=== PATIENT | female | born 1935 | race Caucasian/White ===

== ENCOUNTER 2017-05-21 09:37 | Emergency (ER) | payer MEDICARE ==
[~2017-05-21] VITALS: Ht 165.1 cm; Wt 100.0 kg
[~2017-05-21 09:37] MED LIST: ACETAMIN500 M1 PO; ALLEGRA ALLERG180 MG PO; ANTI-DIARRHEAL2 MG PO; ASACOL400 MG PO; AVELOX400 MG PO; BENADRYL 25MG C25 MG PO; BENADRYL25 MG PO; BENAZEPRIL10 M1 PO; BENAZEPRIL10 MG PO; CEPH500C57 OR; COQ-1030 MG PO; CRESTOR20 MG PO; D3400 UNIT OR; DIPROLENE 0.05% EX; DIPROLENE AF0.05 % EX; DIPROLENE AF0.05 % TOP; DUONEB IN; FISH OIL1000 MG PO; FLAGYL500 MG PO; FUROSEMIDE40 MG PO; GLYBURIDE5 M1 PO; GLYBURIDE5 MG PO; HUMALOG100 MG/ML SC; HYDROCHLOROT50 MG OR; KLOR-CON 1010 MEQ PO; KLOR-CON M1010 MEQ OR; LANTUS SC; LANTUS100 MG/ML SC; LASIX40 MG PO; LEVEMIR FL100 UNIT/M SC; LOPRESSOR 550 MG/TAB PO; LOPRESSOR25 M1 PO; LOPRESSOR50 M1 PO; LOTREL1 CA1 OR; LOTREL1 CA4 PO; LYRICA50 MG PO; MECLIZINE25 M1 PO; MECLIZINE25 MG OR; MECLIZINE25 MG PO; METOCLOPRAM5 MG OR; METOPROL TAR25 MG PO; METOPROL TAR50 MG PO; MIACALCIN200 MG/ACT; MICRO-K10 ME1 PO; MICRONASE5 MG OR; MICRONASE5 MG PO; MULTI VIT PO; NOVOLOG100 IU/1 M SC; OMEPRAZOLE20 MG OR; OMEPRAZOLE40 MG PO; PANTOPRAZOLE SO40 MG PO; PLAVIX75 MG PO; POT CHLORIDE10 ME1 PO; PRAVACHOL80 MG OR; PRAVASTATIN80 MG PO; SLOW-MAG64 MG OR; SODIUM HYPOCHLORITE 0.125% EX; STRESS FORMULA OR; STRESSTAB2 PO; SYNTHROID100 MCG OR; SYNTHROID100 MCG PO; TRAMADOL HYDROC50 MG PO; TUMS ULTRA1000 MG OR; TYLENOL # 31 TA1 PO; TYLENOL 500MG TAB PO; TYLENOL ARTHRITIS PO; TYLENOL500 MG OR; VAGIFEM25 MCG VA; VICODIN1 TAB PO; VITAMIN B 6100 MG PO; VITAMIN B-650 MG OR; VITAMIN D1000 UNIT PO; VITAMIN D400 UNI1 OR; VITAMIN D400 UNI2 PO
[2017-05-21] MEDS ORDERED: MIACALCIN200 UNIT/A (10:58)
[2017-05-21] MEDS ORDERED: GABAPENTIN400 M2 PO (10:59)
[2017-05-21] MEDS ORDERED: LORTAB 5-325 MG1 TAB PO (11:14)
[2017-05-21] MEDS ORDERED: EC-NAPROSYN500 MG PO (11:14)
[2017-05-21 11:41] VITALS: BP 205/82
== END 2017-05-21 11:55 | disposition home or self-care (01) ==
LOC: ED 09:37
DX: S80.01XA Contusion of right knee, initial encounter (principal); M25.461 Effusion, right knee; W18.39XA Other fall on same level, initial encounter; Y92.002 Bathroom of unspecified non-institutional (private) residence as the place of occurrence of the external cause; E10.9 Type 1 diabetes mellitus without complications; Z79.4 Long term (current) use of insulin; R53.1 Weakness

== ENCOUNTER → 2017-11-21 | Day surgery (SDC) | payer MEDICARE ==
[~2017-11-21] VITALS: Ht 165.1 cm; Wt 99.8 kg
[~2017-11-21] MED LIST changes: +ANTI-DIARRHEAL2 M1 PO; +EC-NAPROSYN500 MG PO; +GABAPENTIN400 M2 PO; +HUMALOG100 UNIT/M SC; +LORTAB 5-325 MG1 TAB PO; +MIACALCIN200 UNIT/A; +SIMVASTATIN40 MG PO; +TYLENOL 8 HOUR650 MG
[2017-11-21 09:50] VITALS: BP 156/69
== END ==
LOC: ORM 07:37
PROVIDERS: ATTEND Anesthesiology Pain Medicine
PROC: 3E0T33Z Introduction of Anti-inflammatory into Peripheral Nerves and Plexi, Percutaneous Approach (ICD-10-PCS; principal; 2017-11-21)
PROC: 3E0T3BZ Introduction of Anesthetic Agent into Peripheral Nerves and Plexi, Percutaneous Approach (ICD-10-PCS; 2017-11-21)
PROC: 3E0T33Z Introduction of Anti-inflammatory into Peripheral Nerves and Plexi, Percutaneous Approach (ICD-10-PCS; 2017-11-21)
PROC: 3E0T3BZ Introduction of Anesthetic Agent into Peripheral Nerves and Plexi, Percutaneous Approach (ICD-10-PCS; 2017-11-21)
DX: M54.5 Low back pain (principal); M47.816 Spondylosis without myelopathy or radiculopathy, lumbar region

== ENCOUNTER 2017-12-05 05:49 | Day surgery (SDC) | payer MEDICARE ==
[~2017-12-05] VITALS: Ht 165.1 cm; Wt 99.8 kg
[2017-12-05 09:56] VITALS: BP 141/80
== END 2017-12-05 09:51 | disposition home or self-care (01) ==
LOC: ORM 05:49
PROVIDERS: ATTEND Anesthesiology Pain Medicine
PROC: 3E0U33Z Introduction of Anti-inflammatory into Joints, Percutaneous Approach (ICD-10-PCS; principal; 2017-12-05)
PROC: 3E0U3BZ Introduction of Anesthetic Agent into Joints, Percutaneous Approach (ICD-10-PCS; 2017-12-05)
DX: M54.5 Low back pain (principal); M51.36 Other intervertebral disc degeneration, lumbar region; M12.9 Arthropathy, unspecified; M41.26 Other idiopathic scoliosis, lumbar region; M16.11 Unilateral primary osteoarthritis, right hip; M71.551 Other bursitis, not elsewhere classified, right hip

== ENCOUNTER 2017-12-19 06:53 | Day surgery (SDC) | payer MEDICARE ==
[2017-12-19 13:11] VITALS: BP 187/75
[2018-01-01] MEDS ORDERED: TRAMADOL HCL50 MG PO (11:19)
== END 2017-12-19 10:30 | disposition home or self-care (01) ==
LOC: ORM 06:53
PROVIDERS: ATTEND Anesthesiology Pain Medicine
PROC: 3E0T3BZ Introduction of Anesthetic Agent into Peripheral Nerves and Plexi, Percutaneous Approach (ICD-10-PCS; principal; 2017-12-19)
PROC: 3E0T33Z Introduction of Anti-inflammatory into Peripheral Nerves and Plexi, Percutaneous Approach (ICD-10-PCS; 2017-12-19)
DX: M76.21 Iliac crest spur, right hip (principal); M76.22 Iliac crest spur, left hip

== ENCOUNTER → 2018-08-07 | Outpatient (REF) | payer MEDICARE ==
[~2018-08-07] MED LIST changes: +TRAMADOL HCL50 MG PO
[2018-08-07 11:14] LABS: HEMATOCRIT 37.5 % (37.0-47.0); HEMOGLOBIN 11.8 g/dl (12.0-16.0); IMMATURE GRANULOCYTES 0.2 % (0.0-5.0); MEAN CELL VOLUME 92.4 fL CALC (80.0-100.0); MEAN CORPUSCULAR HGB 29.1 pG CALC (26.0-32.0); MEAN CORPUSCULAR HGB CONC 31.5 g/L CALC (32.0-36.0); NEUT# 3.05 thou/uL (2.00-7.15); RED BLOOD COUNT 4.06 mill/uL (4.20-5.60); RED CELL DISTRI WIDTH 14.6 % (11.5-15.5)
[2018-08-07 11:40] LABS: ALBUMIN 3.7 g/dL (3.2-5.0); BILIRUBIN, TOTAL 0.4 mg/dL (0.0-1.4); CREATININE 1.2 mg/dL (0.5-1.0); POTASSIUM 4.5 mmol/l (3.5-5.1); TOTAL PROTEIN 6.9 g/dL (6.3-8.2)
[2018-08-07 12:10] LABS: TSH, 3RD GENERATION 1.17 uIU/mL (0.47 - 4.68)
== END | disposition home or self-care (01) ==
LOC: LAB 10:49
PROVIDERS: ATTEND Nurse Practitioner Adult Health
DX: E11.42 Type 2 diabetes mellitus with diabetic polyneuropathy (principal); E78.49 Other hyperlipidemia; N18.9 Chronic kidney disease, unspecified

== ENCOUNTER 2021-09-03 12:02 | Emergency (ER) | payer MEDICARE ==
[~2021-09-03] VITALS: Ht 160 cm; Wt 90.0 kg
[2021-09-03 12:53] LABS: HEMOGLOBIN 11.6 g/dl (12.0-16.0); IMMATURE GRANULOCYTES 0.1 % (0.0-5.0); MEAN CELL VOLUME 93.4 fL CALC (80.0-100.0); MEAN CORPUSCULAR HGB 28.5 pG CALC (26.0-32.0); MEAN CORPUSCULAR HGB CONC 30.5 g/dL CAL (32.0-36.0); NEUT# 5.11 thou/uL (2.00-7.15); RED BLOOD COUNT 4.07 mill/uL (4.20-5.60); RED CELL DISTRI WIDTH 14.8 % (11.5-15.5)
[2021-09-03 13:04] LABS: ALBUMIN 4.5 g/dL (3.2-5.0); CREATININE 1.4 mg/dL (0.5-1.0)
[2021-09-03 13:14] LABS: BILIRUBIN, TOTAL 1.4 mg/dL (0.0-1.4); POTASSIUM 5.6 mmol/l (3.5-5.1); TOTAL PROTEIN 8.7 g/dL (6.3-8.2)
[2021-09-03 13:20] LABS: URINE BILIRUBIN - DIPSTICK NEGATIVE (NEGATIVE); URINE BLOOD DIPSTICK NEGATIVE (NEGATIVE); URINE COLOR YELLOW; URINE GLUCOSE - DIPSTICK NEGATIVE (NEGATIVE); URINE KETONE NEGATIVE (NEGATIVE); URINE LEUK ESTERASE NEGATIVE (NEGATIVE); URINE PH 5.5 (4.5-8.0); URINE PROTEIN - DIPSTICK NEGATIVE (NEG-TRACE); URINE UROBILINOGEN - DIPSTICK 0.2 E.U./dL (0.2)
[2021-09-03 13:21] LABS: URINE NITRITE - DIPSTICK NEGATIVE (Negative)
[2021-09-03 15:45] VITALS: BP 166/57
== END 2021-09-03 16:36 | disposition home or self-care (01) ==
LOC: ED 12:02
PROVIDERS: Family Medicine
DX: E11.649 Type 2 diabetes mellitus with hypoglycemia without coma (principal); I10 Essential (primary) hypertension; I25.2 Old myocardial infarction; Z79.4 Long term (current) use of insulin

== ENCOUNTER 2022-09-05 20:49 | Emergency (ER) | payer MEDICARE ==
[~2022-09-05] VITALS: Ht 160 cm; Wt 122.7 kg
[2022-09-05] VITALS (10 sets, daily range): BP systolic 123–153; BP diastolic 36–56
[2022-09-05 21:37] LABS: HEMATOCRIT 39.8 % (37.0-47.0); IMMATURE GRANULOCYTES 0.2 % (0.0-5.0); MEAN CELL VOLUME 91.1 fL CALC (80.0-100.0); MEAN CORPUSCULAR HGB 27.5 pG CALC (26.0-32.0); MEAN CORPUSCULAR HGB CONC 30.2 g/dL CAL (32.0-36.0); NEUT# 10.02 thou/uL (2.00-7.15); RED BLOOD COUNT 4.37 mill/uL (4.20-5.60); RED CELL DISTRI WIDTH 16.1 % (11.5-15.5)
[2022-09-05 21:44] LABS: ACT PARTIAL THROMBO TIME 23.1 SECONDS (20.0-32.5); ALBUMIN 4.2 g/dL (3.2-5.0); BILIRUBIN, TOTAL 0.4 mg/dL (0.0-1.4); CREATININE 1.6 mg/dL (0.5-1.0); INTERNATIONAL NORMALIZED RATIO 1.1 RATIO (0.7-1.3); TOTAL PROTEIN 7.5 g/dL (6.3-8.2)
[2022-09-05 21:46] LABS: POTASSIUM 4.1 mmol/l (3.5-5.1)
[2022-09-05 23:24] LABS: URINE BLOOD DIPSTICK NEGATIVE (NEGATIVE); URINE COLOR YELLOW; URINE GLUCOSE - DIPSTICK NEGATIVE (NEGATIVE); URINE KETONE TRACE mg/dL (NEGATIVE); URINE LEUK ESTERASE TRACE (NEGATIVE); URINE PROTEIN - DIPSTICK 30 mg/dL (NEG-TRACE); URINE SPECIFIC GRAVITY 1.025; URINE UROBILINOGEN - DIPSTICK 0.2 E.U./dL (0.2)
[2022-09-05 23:25] LABS: URINE BILIRUBIN - DIPSTICK SMALL (NEGATIVE)
[2022-09-05 23:26] LABS: URINE NITRITE - DIPSTICK NEGATIVE (Negative)
[2022-09-05 23:32] LABS: URINE BACTERIA MODERATE hpf; URINE CALCIUM OXALATE CRYSTALS FEW lpf; URINE MUCUS FEW hpf (NONE-FEW); URINE SQUAMOUS EPITHELIAL CELL FEW EPI/hpf (0-FEW)
[2022-09-06] VITALS (11 sets, daily range): BP systolic 110–136; BP diastolic 48–65
== END 2022-09-06 03:18 ==
LOC: ED 20:49 → ED-I 23:12 → ED 09-06 03:18
PROVIDERS: Emergency Medicine
PROC: 0T9B70Z Drainage of Bladder with Drainage Device, Via Natural or Artificial Opening (ICD-10-PCS; principal; 2022-09-05)
DX: K50.111 Crohn's disease of large intestine with rectal bleeding (principal); I10 Essential (primary) hypertension; E11.9 Type 2 diabetes mellitus without complications; I25.2 Old myocardial infarction; Z79.4 Long term (current) use of insulin
CPT/HCPCS: J0131; S0164

== ENCOUNTER 2023-01-17 13:58 | Inpatient (IN) | payer MEDICARE ==
[~2023-01-17] VITALS: Ht 160 cm; Wt 93.0 kg
[2023-01-17 15:08] LABS: BASO% 1.1 % (0-3); EOS% 3.7 % (0-8); HEMOGLOBIN 10.3 g/dl (12.0-16.0); IMMATURE GRANULOCYTES 0.2 % (0.0-5.0); LYMPH% 17.8 % (15-41); MEAN CELL VOLUME 94.6 fL CALC (80.0-100.0); MEAN CORPUSCULAR HGB 27.8 pG CALC (26.0-32.0); MEAN CORPUSCULAR HGB CONC 29.4 g/dL CAL (32.0-36.0); NEUT# 4.44 thou/uL (2.00-7.15); NEUT% 69.2 % (42-76); RED BLOOD COUNT 3.7 mill/uL (4.20-5.60); RED CELL DISTRI WIDTH 15.6 % (11.5-15.5)
[2023-01-17 15:21] LABS: ALBUMIN 3.7 g/dL (3.2-5.0); ALKALINE PHOSPHATASE 86 u/l (38-126); ANION GAP 12 (6-22 (CALC)); BILIRUBIN, TOTAL 0.3 mg/dL (0.02-1.3); BUN 24 mg/dL (8-23); BUN/CREATININE RATIO 24 (12-20 (CALC)); CARBON DIOXIDE 24 mmol/l (22-30); CHLORIDE 112 mmol/l (95-108); GFR FOR AFR.AMER. > 60 ML/MIN (>=60 (CALC)); GFR OTHER RACES 52 ML/MIN (>=60 (CALC)); POTASSIUM 4.9 mmol/l (3.5-5.1); SGOT/AST 18 u/l (9-36); SODIUM 142 mmol/l (137-146)
[2023-01-17 16:34] LABS: URINE BILIRUBIN - DIPSTICK NEGATIVE (NEGATIVE); URINE BLOOD DIPSTICK NEGATIVE (NEGATIVE); URINE COLOR YELLOW; URINE GLUCOSE - DIPSTICK NEGATIVE (NEGATIVE); URINE KETONE NEGATIVE (NEGATIVE); URINE LEUK ESTERASE NEGATIVE (NEGATIVE); URINE PROTEIN - DIPSTICK NEGATIVE (NEG-TRACE); URINE UROBILINOGEN - DIPSTICK 0.2 E.U./dL (0.2)
[2023-01-17 16:41] LABS: URINE NITRITE - DIPSTICK NEGATIVE (Negative)
[2023-01-17 18:33] VITALS: BP 169/76
[2023-01-17 23:17] VITALS: BP 151/61
[2023-01-17 23:21] VITALS: BP 108/49
[2023-01-18] VITALS (8 sets, daily range): BP systolic 157–179; BP diastolic 63–76
[2023-01-18 06:31] LABS: BASO% 0.4 % (0-3); HEMATOCRIT 36.4 % (37.0-47.0); HEMOGLOBIN 10.9 g/dl (12.0-16.0); IMMATURE GRANULOCYTES 0.4 % (0.0-5.0); LYMPH% 17.4 % (15-41); MEAN CELL VOLUME 93.1 fL CALC (80.0-100.0); MEAN CORPUSCULAR HGB 27.9 pG CALC (26.0-32.0); MEAN CORPUSCULAR HGB CONC 29.9 g/dL CAL (32.0-36.0); MONO% 1.2 % (2-13); NEUT# 4.04 thou/uL (2.00-7.15); NEUT% 80.6 % (42-76); RED BLOOD COUNT 3.91 mill/uL (4.20-5.60); RED CELL DISTRI WIDTH 15.6 % (11.5-15.5)
[2023-01-18 06:36] LABS: ALKALINE PHOSPHATASE 99 u/l (38-126); ANION GAP 12 (6-22 (CALC)); BILIRUBIN, TOTAL 0.3 mg/dL (0.02-1.3); BUN 26 mg/dL (8-23); BUN/CREATININE RATIO 28 (12-20 (CALC)); CARBON DIOXIDE 27 mmol/l (22-30); CHLORIDE 109 mmol/l (95-108); CREATININE 0.9 mg/dL (0.5-1.0); GFR FOR AFR.AMER. > 60 ML/MIN (>=60 (CALC)); GFR OTHER RACES 59 ML/MIN (>=60 (CALC)); MAGNESIUM 2.1 mg/dL (1.6-2.3); POTASSIUM 4.9 mmol/l (3.5-5.1); SGOT/AST 22 u/l (9-36); SODIUM 143 mmol/l (137-146); TOTAL PROTEIN 7.8 g/dL (6.3-8.2)
[2023-01-18] MEDS ORDERED: TRESIBA100 UNIT/M SC (09:02)
[2023-01-18] MEDS ORDERED: BUMETANIDE1 MG PO (09:10)
[2023-01-18] MEDS ORDERED: NORVASC5 M1 PO (09:11)
[2023-01-18] MEDS ORDERED: CYANOCOBAL1000 MCG/M (09:14)
[2023-01-18] MEDS ORDERED: PRAVASTATIN40 MG PO (09:15)
[2023-01-18] MEDS ORDERED: TRIAMCINOLON0.51 EX (09:16)
[2023-01-19] VITALS (9 sets, daily range): BP systolic 153–186; BP diastolic 54–77
[2023-01-19 05:38] LABS: BASO% 0.8 % (0-3); EOS% 0.9 % (0-8); HEMATOCRIT 37.9 % (37.0-47.0); HEMOGLOBIN 11.2 g/dl (12.0-16.0); IMMATURE GRANULOCYTES 0.2 % (0.0-5.0); LYMPH% 20.9 % (15-41); MEAN CELL VOLUME 95.2 fL CALC (80.0-100.0); MEAN CORPUSCULAR HGB 28.1 pG CALC (26.0-32.0); MEAN CORPUSCULAR HGB CONC 29.6 g/dL CAL (32.0-36.0); NEUT# 7.31 thou/uL (2.00-7.15); NEUT% 70.2 % (42-76); RED BLOOD COUNT 3.98 mill/uL (4.20-5.60); RED CELL DISTRI WIDTH 15.9 % (11.5-15.5)
[2023-01-19 05:59] LABS: ALKALINE PHOSPHATASE 79 u/l (38-126); BUN 37 mg/dL (8-23); BUN/CREATININE RATIO 37 (12-20 (CALC)); CARBON DIOXIDE 23 mmol/l (22-30); CHLORIDE 107 mmol/l (95-108); GFR FOR AFR.AMER. > 60 ML/MIN (>=60 (CALC)); GFR OTHER RACES 52 ML/MIN (>=60 (CALC)); SGOT/AST 28 u/l (9-36); SODIUM 143 mmol/l (137-146); TOTAL PROTEIN 7.6 g/dL (6.3-8.2)
[2023-01-19 06:01] LABS: ANION GAP 18 (6-22 (CALC)); BILIRUBIN, TOTAL 0.6 mg/dL (0.02-1.3); POTASSIUM 5.2 mmol/l (3.5-5.1)
[2023-01-20] VITALS (9 sets, daily range): BP systolic 142–198; BP diastolic 53–79
[2023-01-20 06:56] LABS: BASO% 0.8 % (0-3); HEMATOCRIT 34.4 % (37.0-47.0); HEMOGLOBIN 10.3 g/dl (12.0-16.0); IMMATURE GRANULOCYTES 0.1 % (0.0-5.0); LYMPH% 20.2 % (15-41); MEAN CELL VOLUME 92.7 fL CALC (80.0-100.0); MEAN CORPUSCULAR HGB 27.8 pG CALC (26.0-32.0); MEAN CORPUSCULAR HGB CONC 29.9 g/dL CAL (32.0-36.0); MONO% 10.4 % (2-13); NEUT# 4.86 thou/uL (2.00-7.15); NEUT% 65.5 % (42-76); RED BLOOD COUNT 3.71 mill/uL (4.20-5.60); RED CELL DISTRI WIDTH 15.4 % (11.5-15.5)
[2023-01-20 07:08] LABS: ALBUMIN 3.8 g/dL (3.2-5.0); ALKALINE PHOSPHATASE 89 u/l (38-126); ANION GAP 10 (6-22 (CALC)); BILIRUBIN, TOTAL 0.4 mg/dL (0.02-1.3); BUN 34 mg/dL (8-23); BUN/CREATININE RATIO 38 (12-20 (CALC)); CARBON DIOXIDE 33 mmol/l (22-30); CHLORIDE 102 mmol/l (95-108); CREATININE 0.9 mg/dL (0.5-1.0); GFR FOR AFR.AMER. > 60 ML/MIN (>=60 (CALC)); GFR OTHER RACES 59 ML/MIN (>=60 (CALC)); POTASSIUM 4.1 mmol/l (3.5-5.1); SGOT/AST 19 u/l (9-36); SODIUM 141 mmol/l (137-146)
[2023-01-21 04:00] VITALS: BP 148/57
[2023-01-21 04:40] VITALS: BP 148/57
[2023-01-21 06:41] VITALS: BP 146/60
[2023-01-21 11:07] VITALS: BP 142/60
[2023-01-21 19:19] VITALS: BP 146/53
[2023-01-22] VITALS (7 sets, daily range): BP systolic 127–161; BP diastolic 46–69
[2023-01-22 05:25] LABS: BASO% 0.8 % (0-3); EOS% 5.5 % (0-8); HEMOGLOBIN 9.8 g/dl (12.0-16.0); IMMATURE GRANULOCYTES 0.2 % (0.0-5.0); LYMPH% 23.8 % (15-41); MEAN CELL VOLUME 92.8 fL CALC (80.0-100.0); MEAN CORPUSCULAR HGB 28.4 pG CALC (26.0-32.0); MEAN CORPUSCULAR HGB CONC 30.6 g/dL CAL (32.0-36.0); MONO% 10.2 % (2-13); NEUT# 3.94 thou/uL (2.00-7.15); NEUT% 59.5 % (42-76); RED BLOOD COUNT 3.45 mill/uL (4.20-5.60); RED CELL DISTRI WIDTH 15.2 % (11.5-15.5)
[2023-01-22 05:40] LABS: BUN 33 mg/dL (8-23); BUN/CREATININE RATIO 32 (12-20 (CALC)); CARBON DIOXIDE 32 mmol/l (22-30); CHLORIDE 103 mmol/l (95-108); GFR FOR AFR.AMER. > 60 ML/MIN (>=60 (CALC)); GFR OTHER RACES 52 ML/MIN (>=60 (CALC)); MAGNESIUM 1.9 mg/dL (1.6-2.3); POTASSIUM 3.9 mmol/l (3.5-5.1)
[2023-01-22 05:43] LABS: ANION GAP 9 (6-22 (CALC)); SODIUM 140 mmol/l (137-146)
[2023-01-23] VITALS (8 sets, daily range): BP systolic 123–157; BP diastolic 43–67
[2023-01-23 05:48] LABS: BASO% 0.8 % (0-3); EOS% 5.3 % (0-8); HEMATOCRIT 33.9 % (37.0-47.0); HEMOGLOBIN 10.2 g/dl (12.0-16.0); IMMATURE GRANULOCYTES 0.3 % (0.0-5.0); LYMPH% 21.2 % (15-41); MEAN CELL VOLUME 92.4 fL CALC (80.0-100.0); MEAN CORPUSCULAR HGB 27.8 pG CALC (26.0-32.0); MEAN CORPUSCULAR HGB CONC 30.1 g/dL CAL (32.0-36.0); NEUT# 4.02 thou/uL (2.00-7.15); NEUT% 61.4 % (42-76); RED BLOOD COUNT 3.67 mill/uL (4.20-5.60); RED CELL DISTRI WIDTH 14.9 % (11.5-15.5)
[2023-01-23 05:54] LABS: ALBUMIN 3.4 g/dL (3.2-5.0); BILIRUBIN, TOTAL 0.3 mg/dL (0.02-1.3); CREATININE 1.1 mg/dL (0.5-1.0); POTASSIUM 3.9 mmol/l (3.5-5.1); TOTAL PROTEIN 6.6 g/dL (6.3-8.2)
[2023-01-24 03:56] VITALS: BP 115/55
[2023-01-24 05:49] LABS: EOS% 5.8 % (0-8); HEMATOCRIT 35.7 % (37.0-47.0); HEMOGLOBIN 10.5 g/dl (12.0-16.0); IMMATURE GRANULOCYTES 0.3 % (0.0-5.0); LYMPH% 21.6 % (15-41); MEAN CELL VOLUME 94.2 fL CALC (80.0-100.0); MEAN CORPUSCULAR HGB 27.7 pG CALC (26.0-32.0); MEAN CORPUSCULAR HGB CONC 29.4 g/dL CAL (32.0-36.0); MONO% 10.2 % (2-13); NEUT# 4.08 thou/uL (2.00-7.15); NEUT% 61.1 % (42-76); RED BLOOD COUNT 3.79 mill/uL (4.20-5.60); RED CELL DISTRI WIDTH 14.9 % (11.5-15.5)
[2023-01-24 05:57] LABS: ALBUMIN 3.6 g/dL (3.2-5.0); BILIRUBIN, TOTAL 0.3 mg/dL (0.02-1.3); CREATININE 1.2 mg/dL (0.5-1.0); MAGNESIUM 2.1 mg/dL (1.6-2.3)
[2023-01-24 07:05] VITALS: BP 184/78
[2023-01-24 08:53] VITALS: BP 173/59
[2023-01-24 11:23] VITALS: BP 118/44
== END 2023-01-24 14:10 | DRG 291 ==
LOC: ED 13:58 → ED-I 17:00 → ED 17:47 → MS2 17:48
PROVIDERS: Emergency Medicine; Nurse Practitioner Family; ADMIT Internal Medicine; ATTEND Internal Medicine
DX: I13.0 Hypertensive heart and chronic kidney disease with heart failure and stage 1 through stage 4 chronic kidney disease, or unspecified chronic kidney disease (principal); I50.43 Acute on chronic combined systolic (congestive) and diastolic (congestive) heart failure; L89.613 Pressure ulcer of right heel, stage 3; R09.02 Hypoxemia; E11.22 Type 2 diabetes mellitus with diabetic chronic kidney disease; N18.30 Chronic kidney disease, stage 3 unspecified; I25.10 Atherosclerotic heart disease of native coronary artery without angina pectoris; F03.90 Unspecified dementia, unspecified severity, without behavioral disturbance, psychotic disturbance, mood disturbance, and anxiety; I25.2 Old myocardial infarction; I08.0 Rheumatic disorders of both mitral and aortic valves; I27.20 Pulmonary hypertension, unspecified; G47.33 Obstructive sleep apnea (adult) (pediatric); E78.2 Mixed hyperlipidemia; E03.9 Hypothyroidism, unspecified; I89.0 Lymphedema, not elsewhere classified; K21.9 Gastro-esophageal reflux disease without esophagitis; T50.1X6A Underdosing of loop [high-ceiling] diuretics, initial encounter; Z91.128 Patient's intentional underdosing of medication regimen for other reason; Z79.4 Long term (current) use of insulin; Z95.1 Presence of aortocoronary bypass graft; Z79.02 Long term (current) use of antithrombotics/antiplatelets; Z20.822 Contact with and (suspected) exposure to COVID-19
CPT/HCPCS: G0378

== ENCOUNTER 2023-12-04 09:46 | Observation (INO) | payer MEDICARE ==
[~2023-12-04] VITALS: Ht 160 cm; Wt 81.6 kg
[2023-12-04] VITALS (10 sets, daily range): BP systolic 109–178; BP diastolic 48–74
[~2023-12-04 09:46] MED LIST changes: +BUMETANIDE1 MG PO; +CYANOCOBAL1000 MCG/M; +NORVASC5 M1 PO; +PRAVASTATIN40 MG PO; +TRESIBA100 UNIT/M SC; +TRIAMCINOLON0.51 EX
[2023-12-04 10:48] LABS: BASO% 0.8 % (0-3); EOS% 3.3 % (0-8); HEMATOCRIT 39.7 % (37.0-47.0); HEMOGLOBIN 12.6 g/dl (12.0-16.0); IMMATURE GRANULOCYTES 0.1 % (0.0-5.0); LYMPH% 27.3 % (15-41); MEAN CELL VOLUME 96.1 fL CALC (80.0-100.0); MEAN CORPUSCULAR HGB 30.5 pG CALC (26.0-32.0); MEAN CORPUSCULAR HGB CONC 31.7 g/dL CAL (32.0-36.0); MONO% 6.8 % (2-13); NEUT# 4.75 thou/uL (2.00-7.15); NEUT% 61.7 % (42-76); RED BLOOD COUNT 4.13 mill/uL (4.20-5.60); RED CELL DISTRI WIDTH 13.6 % (11.5-15.5)
[2023-12-04 10:50] LABS: ALKALINE PHOSPHATASE 82 u/l (38-126); ANION GAP 12 (6-22 (CALC)); BILIRUBIN, TOTAL 0.4 mg/dL (0.02-1.3); BUN 43 mg/dL (8-23); BUN/CREATININE RATIO 25 (12-20 (CALC)); CARBON DIOXIDE 24 mmol/l (22-30); CHLORIDE 111 mmol/l (95-108); CREATININE 1.7 mg/dL (0.5-1.0); GFR FOR AFR.AMER. 34 ML/MIN (>=60 (CALC)); GFR OTHER RACES 28 ML/MIN (>=60 (CALC)); POTASSIUM 4.3 mmol/l (3.5-5.1); SGOT/AST 26 u/l (9-36); SODIUM 142 mmol/l (137-146); TOTAL PROTEIN 7.2 g/dL (6.3-8.2)
[2023-12-04 11:00] LABS: URINE BILIRUBIN - DIPSTICK Negative (NEGATIVE); URINE BLOOD DIPSTICK Trace-intact (NEGATIVE); URINE GLUCOSE - DIPSTICK Negative (NEGATIVE); URINE KETONE Negative (NEGATIVE); URINE NITRITE - DIPSTICK Negative (Negative); URINE PROTEIN - DIPSTICK Negative (NEG-TRACE); URINE SPECIFIC GRAVITY 1.015; URINE UROBILINOGEN - DIPSTICK 0.2 E.U./dL (0.2)
[2023-12-04 11:01] LABS: URINE COLOR Yellow; URINE EPITHELIAL CELLS FEW EPI/hpf (0-FEW); URINE LEUK ESTERASE Moderate (NEGATIVE); URINE RBC 0-2 RBC/hpf (0-5)
[2023-12-04 11:02] LABS: URINE BACTERIA FEW hpf
[2023-12-04] MEDS ORDERED: cefTRIAXone SODIUM 2 GM in SODIUM CHLORIDE 0.9% 100 ML IV ONE (13:25)
[2023-12-04] MEDS ORDERED: SODIUM CHLORIDE 0.9% 1,000 ML IV PRN (15:05)
[2023-12-04] MEDS ORDERED: MAGNESIUM HYDROXIDE 30 ML UDC PO PRN (15:05)
[2023-12-04] MEDS ORDERED: ACETAMINOPHEN 325 MG/TAB PO PRN (15:05)
[2023-12-04] MEDS ORDERED: BENAZEPRIL40 M1 PO (15:20)
[2023-12-04] MEDS ORDERED: OZEMPIC2 MG (15:21)
[2023-12-04] MEDS ORDERED: ENOXAPARIN SODIUM 30 MG/0.3 ML INJ SC SCH (21:00)
[2023-12-05 00:09] VITALS: BP 158/70
[2023-12-05 04:18] VITALS: BP 149/60
[2023-12-05 06:11] LABS: BASO% 0.9 % (0-3); EOS% 2.8 % (0-8); HEMATOCRIT 38.5 % (37.0-47.0); HEMOGLOBIN 12.5 g/dl (12.0-16.0); IMMATURE GRANULOCYTES 0.1 % (0.0-5.0); LYMPH% 24.2 % (15-41); MEAN CELL VOLUME 96.3 fL CALC (80.0-100.0); MEAN CORPUSCULAR HGB 31.3 pG CALC (26.0-32.0); MEAN CORPUSCULAR HGB CONC 32.5 g/dL CAL (32.0-36.0); NEUT# 4.96 thou/uL (2.00-7.15); RED CELL DISTRI WIDTH 13.6 % (11.5-15.5)
[2023-12-05 06:26] LABS: ALBUMIN 3.7 g/dL (3.2-5.0); BILIRUBIN, TOTAL 0.4 mg/dL (0.02-1.3); CREATININE 1.3 mg/dL (0.5-1.0); MAGNESIUM 1.7 mg/dL (1.6-2.3); POTASSIUM 4.2 mmol/l (3.5-5.1); TOTAL PROTEIN 6.7 g/dL (6.3-8.2)
[2023-12-05 08:11] VITALS: BP 138/59
[2023-12-05] MEDS ORDERED: amLODIPine BESYLATE 5 MG/TAB PO SCH (09:00)
[2023-12-05] MEDS ORDERED: ANTI-DIARRHEAL2 MG PO (10:41)
[2023-12-05 11:22] VITALS: BP 150/68
[2023-12-05 16:19] VITALS: BP 137/39
[2023-12-05 19:26] VITALS: BP 119/46
[2023-12-05] MEDS ORDERED: INSULIN LISPRO 100 UNITS/ML ML SC SCH (22:37)
[2023-12-05] MEDS ORDERED: DEXTROSE 250 ML IV PRN (22:40)
[2023-12-05] MEDS ORDERED: DEXTROSE 50% 50 ML/SYR IV PRN (22:40)
[2023-12-06 00:46] VITALS: BP 118/48
[2023-12-06 05:23] VITALS: BP 154/69
[2023-12-06 06:48] VITALS: BP 152/64
[2023-12-06 08:14] LABS: BASO% 0.7 % (0-3); EOS% 3.1 % (0-8); HEMATOCRIT 39.3 % (37.0-47.0); HEMOGLOBIN 12.4 g/dl (12.0-16.0); IMMATURE GRANULOCYTES 0.1 % (0.0-5.0); LYMPH% 21.8 % (15-41); MEAN CELL VOLUME 96.8 fL CALC (80.0-100.0); MEAN CORPUSCULAR HGB 30.5 pG CALC (26.0-32.0); MEAN CORPUSCULAR HGB CONC 31.6 g/dL CAL (32.0-36.0); MONO% 7.5 % (2-13); NEUT# 4.52 thou/uL (2.00-7.15); NEUT% 66.8 % (42-76); RED BLOOD COUNT 4.06 mill/uL (4.20-5.60); RED CELL DISTRI WIDTH 13.5 % (11.5-15.5)
[2023-12-06 08:31] LABS: ALBUMIN 3.6 g/dL (3.2-5.0); ALKALINE PHOSPHATASE 77 u/l (38-126); ANION GAP 14 (6-22 (CALC)); BILIRUBIN, TOTAL 0.4 mg/dL (0.02-1.3); BUN 21 mg/dL (8-23); BUN/CREATININE RATIO 21 (12-20 (CALC)); CARBON DIOXIDE 20 mmol/l (22-30); CHLORIDE 113 mmol/l (95-108); GFR FOR AFR.AMER. > 60 ML/MIN (>=60 (CALC)); GFR OTHER RACES 52 ML/MIN (>=60 (CALC)); MAGNESIUM 1.7 mg/dL (1.6-2.3); POTASSIUM 3.9 mmol/l (3.5-5.1); SGOT/AST 22 u/l (9-36); SODIUM 144 mmol/l (137-146); TOTAL PROTEIN 6.5 g/dL (6.3-8.2)
[2023-12-06 10:41] VITALS: BP 145/53
[2023-12-06] MEDS ORDERED: CIPROFLOXACN500 MG PO (12:44)
[2023-12-06] MEDS ORDERED: ENOXAPARIN SODIUM 40 MG/0.4 ML SYR SC SCH (21:00)
[2023-12-07] MEDS ORDERED: KENALOG15 GM/TUBE EX (06:16)
== END 2023-12-06 14:46 ==
LOC: ED 09:46 → ED-I 14:40 → ED 14:59 → MS2 15:00
PROVIDERS: Family Medicine; Nurse Practitioner Family; ADMIT Student in an Organized Health Care Education/Training Program; ATTEND Student in an Organized Health Care Education/Training Program
DX: N30.00 Acute cystitis without hematuria (principal); B96.89 Other specified bacterial agents as the cause of diseases classified elsewhere; N17.9 Acute kidney failure, unspecified; I13.0 Hypertensive heart and chronic kidney disease with heart failure and stage 1 through stage 4 chronic kidney disease, or unspecified chronic kidney disease; I50.9 Heart failure, unspecified; E11.22 Type 2 diabetes mellitus with diabetic chronic kidney disease; N18.32 Chronic kidney disease, stage 3b; I27.20 Pulmonary hypertension, unspecified; I25.10 Atherosclerotic heart disease of native coronary artery without angina pectoris; E03.9 Hypothyroidism, unspecified; F03.C0 Unspecified dementia, severe, without behavioral disturbance, psychotic disturbance, mood disturbance, and anxiety; E78.2 Mixed hyperlipidemia; G47.33 Obstructive sleep apnea (adult) (pediatric); I89.0 Lymphedema, not elsewhere classified; I25.2 Old myocardial infarction; Z95.1 Presence of aortocoronary bypass graft; Z79.4 Long term (current) use of insulin; Z20.822 Contact with and (suspected) exposure to COVID-19
CPT/HCPCS: J1650

== ENCOUNTER 2023-12-07 05:29 | Observation (INO) | payer MEDICARE ==
[~2023-12-07] VITALS: Ht 160 cm; Wt 84.2 kg
[~2023-12-07 05:29] MED LIST changes: +BENAZEPRIL40 M1 PO; +CIPROFLOXACN500 MG PO; +OZEMPIC2 MG
--- NOTE | 2023-12-07 05:29 | NUR ---
PATIENT TM RM 13 VIA EMS AT THIS TIME, PATIENT IS POOR HISTORIAN, ALERT AND ORIENTED TO SELF AND PLACE, UNABLE TO VERBALIZES SITUATION AND TIME, PATIENT HAS HX OF DEMENTIA, TRIAGE COMPLETE, MD AT BEDSIDE, BG TKN, EKG COLLECTED, AWAITING ALL FURTHER ORDERS/RESULTS.
[2023-12-07 05:57] LABS: BASO% 0.4 % (0-3); EOS% 3.1 % (0-8); HEMATOCRIT 38.5 % (37.0-47.0); HEMOGLOBIN 12.1 g/dl (12.0-16.0); IMMATURE GRANULOCYTES 0.1 % (0.0-5.0); LYMPH% 18.7 % (15-41); MEAN CORPUSCULAR HGB 30.5 pG CALC (26.0-32.0); MEAN CORPUSCULAR HGB CONC 31.4 g/dL CAL (32.0-36.0); MONO% 8.5 % (2-13); NEUT# 6.57 thou/uL (2.00-7.15); NEUT% 69.2 % (42-76); RED BLOOD COUNT 3.97 mill/uL (4.20-5.60); RED CELL DISTRI WIDTH 13.9 % (11.5-15.5)
[2023-12-07 06:04] LABS: ALBUMIN 3.8 g/dL (3.2-5.0); ALKALINE PHOSPHATASE 75 u/l (38-126); ANION GAP 10 (6-22 (CALC)); BILIRUBIN, TOTAL 0.3 mg/dL (0.02-1.3); BUN 21 mg/dL (8-23); CARBON DIOXIDE 23 mmol/l (22-30); CHLORIDE 114 mmol/l (95-108); CREATININE 1.4 mg/dL (0.5-1.0); GFR FOR AFR.AMER. 43 ML/MIN (>=60 (CALC)); GFR OTHER RACES 35 ML/MIN (>=60 (CALC)); POTASSIUM 4.6 mmol/l (3.5-5.1); SGOT/AST 29 u/l (9-36); SODIUM 142 mmol/l (137-146); TOTAL PROTEIN 6.8 g/dL (6.3-8.2)
--- NOTE | 2023-12-07 06:05 | NUR ---
PATIENT ARRIVED AT BEDSIDE VERBALIZES SITUATION BELIEVING THE PATIENT WOKE HIM UP AT [id number] THIS AM, STATES HE BELIEVED SHE MADE A NOISE WHILE SLEEPING, THEN STATES PATIENT DID NOT RESPOND TO HIM VERBALLY AND CRIED WHEN TOUCHED, ALSO STATES PATIENT HAS BEEN THIS WAY SINCE LAST SUNDAY AND WAS D/C FROM HOSPITAL YESTERDAY. STATES THIS WAS ABNORMAL FOR HER AND DECIDED TO CALL EMS, MED REC OBTAINED, VERBALIZES HE GAVE ALL NIGHT MEDICATIONS, UNSURE OF MORNING MEDS. PATIENT RESTING IN SEMI-FOWLERS POSITION, AWAITING ALL FURTHER ORDERS/RESULTS, FAMILY UPDATED ON CONTINUOUS PLAN OF CARE, VSS, WILL CONTINUE TO MONITOR.
[2023-12-07 06:08] LABS: INTERNATIONAL NORMALIZED RATIO 1.1 RATIO (0.7-1.3); PROTHROMBIN TIME 10.1 SECONDS (9.0-12.5)
[2023-12-07] MEDS ORDERED: KENALOG15 GM/TUBE EX (06:16)
[2023-12-07 06:25] LABS: BUN/CREATININE RATIO 15 (12-20 (CALC))
--- NOTE | 2023-12-07 07:10 | NUR ---
REPORT GIVEN AND PT. CARE KENIA BAEZ RN.
--- NOTE | 2023-12-07 09:04 | NUR ---
PATIETN RESTING. AWAITNG FINAL TEST RESULTS.
--- NOTE | 2023-12-07 10:02 | NUR ---
PT RESTING WITH AT BEDSIDE. PT COMFORTABLE; VSS. CALL LIGHT IN REACH.
--- NOTE | 2023-12-07 11:05 | NUR ---
PT IS ALERT. PT AT BEDSIDE. CALL LIGHT IN REACH. PT REPOSITIONS FOR COMFORT.
--- NOTE | 2023-12-07 12:10 | NUR ---
PT RESTING WITH EYES CLOSED. EASILY AROUSABLE. CALL LIGHT IN REACH. VSS
--- NOTE | 2023-12-07 13:07 | NUR ---
PT IS ALERT. PT PROVIDED LUNCH. VSS. CALL LIGHT IN REACH. PT VERBALIZED NO NEEDS.
[2023-12-07] MEDS ORDERED: ACETAMINOPHEN 325 MG/TAB PO PRN (13:50)
[2023-12-07] MEDS ORDERED: MAGNESIUM HYDROXIDE 30 ML UDC PO PRN (13:50)
[2023-12-07] MEDS ORDERED: SODIUM CHLORIDE 0.9% 1,000 ML IV PRN (13:50)
--- NOTE | 2023-12-07 15:00 | NUR ---
REPORT PROVIDED TO [facility] NURSE. PT GATHERED ALL BELONINGS PRIOR TO DEPARTURE. PT STABLE PRIOR TO DEPATRUE.
--- NOTE | 2023-12-07 15:05 | NUR ---
PT UP TO MED SURG FROM ER, REPORT RECEIVED. PT IS AWAKE AND ORIENTED TO SELF ONLY. PT IV SITE # 20 TO LFA CLEAN AND INTACT. PT LUNGS CLEAR THROUGHOUT AND BREATHING IS NON LABORED. PT ABD IS SOFT WITH ACTIVE BS. PT SKIN IS RED UNDER BREAST AND ON ABD UNDER SKIN FLAP, BARRIER CREAM APPLIED. PT HAS BREIF ON FOR INCONTINENCE. BLE WITH TRACE EDEMA. PT HAS CALL LIGHT WITHIN REACH AND SAFETY MEASURES IN PLACE AT THIS TIME.
[2023-12-07 15:19] VITALS: BP 140/46
[2023-12-07] MEDS ORDERED: DEXTROSE 250 ML IV PRN (15:45)
[2023-12-07] MEDS ORDERED: INSULIN LISPRO 100 UNITS/ML ML SC SCH (17:00)
[2023-12-07 19:23] VITALS: BP 147/61
--- NOTE | 2023-12-07 20:00 | NUR ---
RECEIVED BEDSIDE REPORT FROM [facility] NURSE. PT IS LAYING IN BED RESTING AT THIS TIME. PT HAS BEEN MADE AWARE OF CHANGE OF SHIFT. PT DENIES OF HAVING PAIN AT THIS TIME. SAFETY PRECAUTIONS IN PLACE AND CALL LIGHT WITHIN REACH.
[2023-12-07] MEDS ORDERED: ENOXAPARIN SODIUM 40 MG/0.4 ML SYR SC SCH (21:00)
[2023-12-07] MEDS ORDERED: METOPROLOL TARTRATE 50 MG/TAB PO SCH (21:00)
[2023-12-07] MEDS ORDERED: CIPROFLOXACIN HCL 500 MG/TAB PO SCH (21:00)
--- NOTE | 2023-12-08 | NUR ---
PT IS IN BED SLEEPING COMFORTABLY AT THIS TIME. NO SIGNS OF PAIN OR DISCOMFORT AT THIS TIME. SAFETY PRECAUTIONS IN PLACE AND CALL LIGHT WITHIN REACH.
[2023-12-08 03:56] VITALS: BP 152/60
--- NOTE | 2023-12-08 04:00 | NUR ---
PT IS CLEANED UP AND CHANGED. PT IS IN BED RESTING. PT REMOVED IV SITE. PT DENIES OF ANY PAIN AT THIS TIME. SAFETY PRECAUTIONS IN PLACE AND CALL LIGHT WITHIN REACH.
[2023-12-08 04:53] LABS: BASO% 0.6 % (0-3); EOS% 3.2 % (0-8); HEMATOCRIT 37.1 % (37.0-47.0); HEMOGLOBIN 11.8 g/dl (12.0-16.0); IMMATURE GRANULOCYTES 0.1 % (0.0-5.0); LYMPH% 19.2 % (15-41); MEAN CELL VOLUME 96.6 fL CALC (80.0-100.0); MEAN CORPUSCULAR HGB 30.7 pG CALC (26.0-32.0); MEAN CORPUSCULAR HGB CONC 31.8 g/dL CAL (32.0-36.0); NEUT# 5.92 thou/uL (2.00-7.15); NEUT% 69.9 % (42-76); RED BLOOD COUNT 3.84 mill/uL (4.20-5.60); RED CELL DISTRI WIDTH 13.9 % (11.5-15.5)
[2023-12-08 05:37] LABS: ALBUMIN 3.4 g/dL (3.2-5.0); BILIRUBIN, TOTAL 0.4 mg/dL (0.02-1.3); CREATININE 1.2 mg/dL (0.5-1.0); POTASSIUM 4.4 mmol/l (3.5-5.1)
[2023-12-08] MEDS ORDERED: LEVOTHYROXINE SODIUM 100 MCG TAB PO SCH (06:00)
--- NOTE | 2023-12-08 08:00 | NUR ---
BEDSIDE SHIFT REPORT COMPLETED. RESTING IN BED. ALERT, ORIENTED TO PERSON AND PLACE. DENIES PAIN OR DISCOMFORT AT PRESENT TIME. CALL LIGHT IN REACH. AT BEDSIDE.
[2023-12-08] MEDS ORDERED: CLOPIDOGREL BISULFATE 75 MG/TAB TAB PO SCH (09:00)
[2023-12-08] MEDS ORDERED: amLODIPine BESYLATE 5 MG/TAB PO SCH (09:00)
[2023-12-08 10:50] VITALS: BP 152/60
--- NOTE | 2023-12-08 14:19 | NUR ---
Discharge instructions given. Patient verbalizes understanding of same. Discharged in stable condition via [facility] with [facility]. All belongings sent with pt. IV site discontinued, cath intact. No edema , no redness, voices no discomfort.
== END 2023-12-08 14:00 ==
LOC: ED 05:29 → ED-I 08:11 → ED 13:30 → MS2 13:31
PROVIDERS: Family Medicine; Nurse Practitioner Family; ADMIT Student in an Organized Health Care Education/Training Program; ATTEND Student in an Organized Health Care Education/Training Program
DX: R53.1 Weakness (principal); F03.B0 Unspecified dementia, moderate, without behavioral disturbance, psychotic disturbance, mood disturbance, and anxiety; N17.9 Acute kidney failure, unspecified; N39.0 Urinary tract infection, site not specified; B96.20 Unspecified Escherichia coli [E. coli] as the cause of diseases classified elsewhere; I13.0 Hypertensive heart and chronic kidney disease with heart failure and stage 1 through stage 4 chronic kidney disease, or unspecified chronic kidney disease; I50.9 Heart failure, unspecified; E11.22 Type 2 diabetes mellitus with diabetic chronic kidney disease; N18.30 Chronic kidney disease, stage 3 unspecified; E03.9 Hypothyroidism, unspecified; I25.10 Atherosclerotic heart disease of native coronary artery without angina pectoris; I08.0 Rheumatic disorders of both mitral and aortic valves; I27.20 Pulmonary hypertension, unspecified; G47.33 Obstructive sleep apnea (adult) (pediatric); E78.2 Mixed hyperlipidemia; K21.9 Gastro-esophageal reflux disease without esophagitis; I25.2 Old myocardial infarction; Z95.1 Presence of aortocoronary bypass graft; Z99.3 Dependence on wheelchair
CPT/HCPCS: J1650